=== PATIENT | female | born 1970 | race Caucasian/White ===

== ENCOUNTER 2023-01-01 15:19 | Emergency (ER) | payer OTHER, BC, SELFPAY ==
[2023-01-01 15:31] VITALS: BP 162/77; PULSE 78; RESP 17; TEMP 36.6; O2SAT 95; BMI 26.6
--- NOTE | 2023-01-01 15:36 | XR_ITS ---
WS: [id number] Left wrist, 3 views, 01/01/2023 Clinical Data: fall injury Comparison: None. Findings: There is a comminuted impacted dorsally displaced fracture of the distal left radius. There is soft t issue swelling about the fracture site. The carpal bones are intact. XR/XR wrist LT min 3V* [id number] Impression: Comminuted fracture distal left radius.
--- NOTE | 2023-01-01 15:43 | ED_ITS ---
Documented by User: MARCIA Knox 01/01/23 18:12 HPI - Extremity Problem General: Chief complaint: Extremity Injury, Upper Stated complaint: Left arm injury Time Seen by Provider: 01/01/23 15:36 History of Present Illness: Patient is a 52-year-old female comes to the ED with left wrist injury. Patient had a fall earlier today and was seen at hospital in [place]. They performed x-rays and said patient has a left wrist fracture and put him in a splint and referred them here to the ED for reevaluation. Patient already has an appointment with an orthopedic doctor at [facility] for follow-up for tomorrow. She has minimal pain. Associated symptoms: Deny chest pain, fever(s) or rash Review of Systems Const: Denies: fever(s), chills or fatigue Eyes: Denies: change in vision or eye discomfort ENMT: Denies: throat pain, odynophagia, nasal discharge or nasal congestion Card: Denies: chest pain, palpitations, edema, swelling of feet/ankles, dyspnea on exertion or orthopnea Resp: Denies: dyspnea, productive cough or non-productive cough GI: Denies: abdominal pain, nausea, vomiting, diarrhea, constipation or hematochezia : Denies: flank pain, dysuria or hematuria Musc: Reports: extremity pain (Left wrist); Denies: neck pain, back pain or extremity swelling Skin/Breast: Denies: rash or new lesions Neuro: Denies: headache(s), numbness in extremities or weakness in extremities [facility] ED PFSH: Medical History (Updated 01/01/23 @ 18:12 by MARCIA Knox) No pertinent family history Surgical History (Updated 01/01/23 @ 18:12 by MARCIA Knox) No pertinent past surgical history Physical Exam Const: COMMON NORMALS: patient oriented x3 and alert GENERAL APPEARANCE: cooperative and comfortable HENMT: COMMON NORMALS: normocephalic HEAD & SCALP: normocephalic MOUTH: Normal oral and palatal mucosa present THROAT: posterior oropharynx normal and uvula midline Neck/C-Spine: COMMON NORMALS: supple GENERAL: Yes normal visual inspection Resp: COMMON NORMALS: normal respiratory effort, No retractions, No use of accessory muscles and clear to auscultation bilaterally AUSCULTATION: clear to auscultation bilaterally Cardio: COMMON NORMALS: regular rate, regular rhythm, S1 normal heart sound present, S2 normal heart sound present, No gallops present (Cardio), No clicks present (Cardio), No murmurs present (Cardio) and Peripheral pulses 2+ throughout RATE: regular rate RHYTHM: regular rhythm HEART SOUNDS: S1 normal heart sound present and S2 normal heart sound present PERIPHERAL PULSES: Peripheral pulses 2+ throughout GI: COMMON NORMALS: Normal to inspection, nondistended, normoactive bowel sounds present, Soft to palpation, non-tender and no masses PALPATION: Yes Soft to palpation : COMMON NORMALS: Yes no CVA tenderness BLADDER/KIDNEY EXAM: Yes no CVA tenderness Back/Pelvis: COMMON NORMALS: no CVA tenderness Extremity: NARRATIVE EXTREMITY EXAM: Left wrist?no visible deformity noted. She has some swelling and tenderness over radial aspect of the wrist. Neurovascular intact distally. Neuro: COMMON NORMALS: patient oriented x3 SENSORIUM/ORIENTATION: Yes alert GAIT: Yes Normal gait present Skin: GENERAL SKIN EXAM: dry skin Course Vital Signs: Vital signs: Vital Signs Temperature 97.8 F 01/01/23 15:31 Pulse Rate 74 01/01/23 18:02 Respiratory Rate 18 01/01/23 18:02 Blood Pressure 117/85 01/01/23 18:02 Pulse Oximetry 97 01/01/23 18:02 Oxygen Delivery Me thod 01/01/23 15:31 MDM - Extremity (Nontraumatic) Medical Decision Making Patient is a 52-year-old female comes to the ED with left wrist injury. Patient had a fall just prior to arrival. Left wrist?no visible deformity noted. She has some swelling and tenderness over radial aspect of the wrist. Neurovascular intact distally. X-ray showed shows comminuted fracture of distal left radius. Patient already has an appointment with [facility] orthopedics tomorrow. Patient was put in a volar wrist splint stable for discharge home. Lab Data Radiology Impressions Wrist X-Ray 01/01/23 15:36 Impression: Comminuted fracture distal left radius. Discharge Plan Discharge Patient Disposition: Home Clinical Impression: Left wrist fracture Qualifiers: Encounter type: initial encounter Fracture type: closed Qualified Code(s): S62.102A - Fracture of unspecified carpal bone, left wrist, initial encounter for closed fracture Condition: Stable Discharge Orders: Discharge ED (Routine); Ordered 01/01/23 Ordered By: Paresh Gómez Discharge Diet: Regular Discharge Activity: Limit activity as instructed Patient Instructions: Wrist Fracture in Adults (ED) Activity Restrictions/Additional Instructions: Follow-up with medical provider as directed. Follow-up with Ortho at your next scheduled appointment. Keep splint on and dry and limit activity with left arm until cleared by Ortho. Continue taking home medications as previously prescribed. Return to the ER or your medical provider if condition worsens. Please read and understand discharge instructions. Thank you for choosing [facility] for your healthcare needs today. Please realize this is an emergency room and that we are providing you with a medical screening exam and this may not be complete and all inclusive of all the testing and or work up that you may need to determine your ailment or severity of your illness. It is very important that you follow up as instructed or that you return to the Emergency Department should you have concerns or if your condition changes or worsens in any way. Coding Level of Care Code ED Provisioning Specialist for Chg Fwd Exam Comprehensive Documented by User: Eric Quintana DO 01/02/23 07:51 HPI - Extremity Problem General: Chief complaint: Extremity Injury, Upper Stated complaint: Left arm injury Time Seen by Provider: 01/01/23 15:36 [facility] ED PFSH: Medical History (Updated 01/01/23 @ 18:12 by MARCIA Knox) No pertinent family history Surgical History (Updated 01/01/23 @ 18:12 by MARCIA Knox) No pertinent past surgical history Course Vital Signs: Vital signs: Vital Signs Temperature 97.8 F 01/01/23 15:31 Pulse Rate 74 01/01/23 18:02 Respiratory Rate 18 01/01/23 18:02 Blood Pressure 117/85 01/01/23 18:02 Pulse Oximetry 97 01/01/23 18:02 Oxygen Delivery Me thod 01/01/23 15:31 MDM - Extremity (Nontraumatic) Medical Decision Making Patient is a 52-year-old female comes to the ED with left wrist injury. Patient had a fall just prior to arrival. Left wrist?no visible deformity noted. She has some swelling and tenderness over radial aspect of the wrist. Neurovascular intact distally. X-ray showed shows comminuted fracture of distal left radius. Patient already has an appointment with [facility] orthopedics tomorrow. Patient was put in a volar wrist splint stable for discharge home. Chart reviewed and patient discussed with midlevel. Agree with assessment and plan. Medical Records I reviewed the patient's medical records. Lab Data I reviewed the patient's lab results. Radiology Impressions Wrist X-Ray 01/01/23 15:36 Impression: Comminuted fracture distal left radius. Discharge Plan Discharge Patient Disposition: Home Clinical Impression: Left wrist fracture Qualifiers: Encounter type: initial encounter Fracture type: closed Qualified Code(s): S62.102A - Fracture of unspecified carpal bone, left wrist, initial encounter for closed fracture Condition: Stable Discharge Orders: Discharge ED (Routine); Ordered 01/01/23 Ordered By: Paresh Gómez Discharge Diet: Regular Discharge Activity: Limit activity as instructed Patient Instructions: Wrist Fracture in Adults (ED) Activity Restrictions/Additional Instructions: Follow-up with medical provider as directed. Follow-up with Ortho at your next scheduled appointment. Keep splint on and dry and limit activity with left arm until cleared by Ortho. Continue taking home medications as previously prescribed. Return to the ER or your medical provider if condition worsens. Please read and understand discharge instructions. Thank you for choosing [facility] for your healthcare needs today. Please realize this is an emergency room and that we are providing you with a medical screening exam and this may not be complete and all inclusive of all the testing and or work up that you may need to determine your ailment or severity of your illness. It is very important that you follow up as instructed or that you return to the Emergency Department should you have concerns or if your condition changes or worsens in any way. Coding Level of Care Code ED Provisioning Specialist for Jose David Alva Exam Comprehensive
[2023-01-01 18:02] VITALS: BP 117/85; PULSE 74; RESP 18; O2SAT 97
== END 2023-01-01 18:04 | disposition home or self-care (01) ==
PROVIDERS: Emergency Provider Physician Assistant
DX: S62.102A Fracture of unspecified carpal bone, left wrist, initial encounter for closed fracture (principal); X58.XXXA Exposure to other specified factors, initial encounter
CPT/HCPCS: 73110; 99283

== ENCOUNTER 2023-01-02 12:55 | Observation (INO) | payer BC, SELFPAY ==
[2023-01-02] VITALS (24 sets, daily range): BP systolic 119–143; BP diastolic 78–91; PULSE 82–91; RESP 16; TEMP 36.6–36.7; O2SAT 81–100; BMI 26.6
--- NOTE | 2023-01-02 13:28 | XR_ITS ---
WS: [id number] Right wrist, 3 views, 01/02/2023 Clinical Data: Fall Comparison: None. Findings: There is a comminuted impacted dorsally displaced fracture of the distal right radius. The distal rig ht ulna is intact. The carpal bones show no fractures. There is soft tissue swelling about the wrist. XR/XR wrist RT min 3V* [id number] Impression: Distal right radial fracture.
--- NOTE | 2023-01-02 14:09 | ED_ITS ---
Documented by User: MARCIA Knox 01/02/23 15:50 HPI - Extremity Problem General: Chief complaint: Extremity Injury, Upper Stated complaint: fall, right arm/hand pain Time Seen by Provider: 01/02/23 13:48 History of Present Illness: Patient is a 52-year-old female comes to the ED with right wrist injury. Patient was seen here in the ED yesterday for left wrist fracture. She states today she went to the orthopedic clinic for follow- up on left wrist fracture. She went down the steps from the clinic to grab some lunch and while walking on the steps she slipped and fell and caught herself with her right wrist. She now has pain and swelling in right wrist. Associated symptoms: Deny chest pain, fever(s) or rash Review of Systems Const: Denies: fever(s), chills or fatigue Eyes: Denies: change in vision or eye discomfort ENMT: Denies: throat pain, odynophagia, nasal discharge or nasal congestion Card: Denies: chest pain, palpitations, edema, swelling of feet/ankles, dyspnea on exertion or orthopnea Resp: Denies: dyspnea, productive cough or non-productive cough GI: Denies: abdominal pain, nausea, vomiting, diarrhea, constipation or hematochezia : Denies: flank pain, dysuria or hematuria Musc: Reports: extremity pain (Right wrist) and limited range of motion (Right wrist); Denies: neck pain, back pain or extremity swelling Skin/Breast: Reports: new lesions (Third digit-laceration); Denies: rash Neuro: Denies: headache(s), numbness in extremities or weakness in extremities [facility] ED PFSH: Medical History No pertinent family history Surgical History No pertinent past surgical history Physical Exam Const: COMMON NORMALS: patient oriented x3 and alert GENERAL APPEARANCE: cooperative and comfortable HENMT: COMMON NORMALS: normocephalic HEAD & SCALP: normocephalic MOUTH: Normal oral and palatal mucosa present THROAT: posterior oropharynx normal and uvula midline Neck/C-Spine: COMMON NORMALS: supple GENERAL: Yes normal visual inspection Resp: COMMON NORMALS: normal respiratory effort, No retractions, No use of accessory muscles and clear to auscultation bilaterally AUSCULTATION: clear to auscultation bilaterally Cardio: COMMON NORMALS: regular rate, regular rhythm, S1 normal heart sound present, S2 normal heart sound present, No gallops present (Cardio), No clicks present (Cardio), No murmurs present (Cardio) and Peripheral pulses 2+ throughout RATE: regular rate RHYTHM: regular rhythm HEART SOUNDS: S1 normal heart sound present and S2 normal heart sound present PERIPHERAL PULSES: Peripheral pulses 2+ throughout GI: COMMON NORMALS: Normal to inspection, nondistended, normoactive bowel sounds present, Soft to palpation, non-tender and no masses PALPATION: Yes Soft to palpation : COMMON NORMALS: Yes no CVA tenderness BLADDER/KIDNEY EXAM: Yes no CVA tenderness Back/Pelvis: COMMON NORMALS: no CVA tenderness Extremity: NARRATIVE EXTREMITY EXAM: Right wrist?mild deformity noted. Swelling and tenderness over radial aspect of wrist. Limited range of motion due to pain. Neurovascular intact distally. Patient also has a 2 cm superficial linear laceration distal end of third digit. No nail or nailbed damage noted. Neuro: COMMON NORMALS: patient oriented x3 SENSORIUM/ORIENTATION: Yes alert GAIT: Yes Normal gait present Skin: GENERAL SKIN EXAM: dry skin Procedures Laceration Laceration 1: Site: hand (Third digit) Side (If applicable): right Size (cm): 2 Description: linear and clean Depth: simple, single layer Local Anesthetic: lidocaine 1% Amount of anesthesia used (mL): 5 Pre-repair: irrigated extensively (With normal saline) Skin layer closed with: nylon Size (cm): 4-0 Number of sutures: 4 Technique: simple, interrupted Course Vital Signs: Vital signs: Vital Signs Temperature 97.9 F 01/02/23 13:23 Pulse Rate 82 01/02/23 13:23 Blood Pressure 129/85 01/02/23 13:23 Pulse Oximetry 95 01/02/23 13:23 Oxygen Delivery Me thod 01/02/23 13:23 MDM - Extremity (Nontraumatic) Medical Decision Making Patient is a 52-year-old female comes to the ED with right wrist injury. Patient was seen here yesterday after having a fall and she had a left wrist fracture. She fell today on the stairs on her way up to the Ortho clinic and injured her right wrist. Vitals are stable. Right wrist shows mild deformity with some swelling tenderness over radial aspect of the wrist. She has limited range of motion due to pain. Neurovascular intact. She has a 2 cm superficial linear laceration over the distal end of third digit. Lidocaine 1% was used as local laceration irrigated extensively with normal saline. 4 sutures were placed to close laceration. I talked with Dr. Gómez the orthopedic surgeon on- call. He reviewed patient's x-rays and since she has bilateral wrist fractures that will need surgical repair he wants patient admitted by hospitalist and he will take her to the OR tomorrow morning. Dr. Quintana been was told about case and is placing the admitting orders. Lab Data Radiology Impressions Wrist X-Ray 01/02/23 13:28 Impression: Distal right radial fracture. Discharge Plan Discharge Patient Disposition: Admitted As Inpatient Clinical Impression: Fracture of right wrist Qualifiers: Encounter type: initial encounter Fracture type: closed Qualified Code(s): S62.101A - Fracture of unspecified carpal bone, right wrist, initial encounter for closed fracture Finger laceration Qualifiers: Encounter type: initial encounter Finger: middle finger Damage to nail status: without damage Foreign body presence: without foreign body Laterality: right Qualified Code(s): S61.212A - Laceration without foreign body of right middle finger without damage to nail, initial encounter Left wrist fracture Qualifiers: Encounter type: subsequent encounter Fracture type: closed Fracture healing: with routine healing Qualified Code(s): S62.102D - Fracture of unspecified carpal bone, left wrist, subsequent encounter for fracture with routine healing Condition: Stable Discharge Diet: Regular Discharge Activity: Increase activity as tolerated Coding Level of Care Code ED Dough Mixer Helper for g Fwd Exam Comprehensive Documented by User: Eric Quintana DO 01/02/23 16:27 HPI - Extremity Problem General: Chief complaint: Extremity Injury, Upper Stated complaint: fall, right arm/hand pain Time Seen by Provider: 01/02/23 13:48 PFSH ED PFSH: Medical History No pertinent family history Surgical History No pertinent past surgical history Course Vital Signs: Vital signs: Vital Signs Temperature 97.9 F 01/02/23 13:23 Pulse Rate 82 01/02/23 13:23 Blood Pressure 129/85 01/02/23 13:23 Pulse Oximetry 95 01/02/23 13:23 Oxygen Delivery Me thod 01/02/23 13:23 MDM - Extremity (Nontraumatic) Medical Decision Making Patient is a 52-year-old female comes to the ED with right wrist injury. Patient was seen here yesterday after having a fall and she had a left wrist fracture. She fell today on the stairs on her way up to the Ortho clinic and injured her right wrist. Vitals are stable. Right wrist shows mild deformity with some swelling tenderness over radial aspect of the wrist. She has limited range of motion due to pain. Neurovascular intact. She has a 2 cm superficial linear laceration over the distal end of third digit. Lidocaine 1% was used as local laceration irrigated extensively with normal saline. 4 sutures were placed to close laceration. I talked with Dr. Gómez the orthopedic surgeon on- call. He reviewed patient's x-rays and since she has bilateral wrist fractures that will need surgical repair he wants patient admitted by hospitalist and he will take her to the OR tomorrow morning. Dr. Mariano glez was told about case and is placing the admitting orders. Chart reviewed and patient discussed with midlevel. Agree with assessment and plan. Orders written for admission Medical Records I reviewed the patient's medical records. Lab Data I reviewed the patient's lab results. Radiology Impressions Wrist X-Ray 01/02/23 13:28 Impression: Distal right radial fracture. Discharge Plan Discharge Patient Disposition: Admitted As Inpatient Clinical Impression: Fracture of right wrist Qualifiers: Encounter type: initial encounter Fracture type: closed Qualified Code(s): S62.101A - Fracture of unspecified carpal bone, right wrist, initial encounter for closed fracture Finger laceration Qualifiers: Encounter type: initial encounter Finger: middle finger Damage to nail status: without damage Foreign body presence: without foreign body Laterality: right Qualified Code(s): S61.212A - Laceration without foreign body of right middle finger without damage to nail, initial encounter Left wrist fracture Qualifiers: Encounter type: subsequent encounter Fracture type: closed Fracture healing: with routine healing Qualified Code(s): S62.102D - Fracture of unspecified carpal bone, left wrist, subsequent encounter for fracture with routine healing Condition: Stable Discharge Diet: Regular Discharge Activity: Increase activity as tolerated Coding Level of Care Code ED Dough Mixer Helper for Jose David Alva Exam Comprehensive
[2023-01-02] MEDS: neomycin-poly-bacitracin oint 28 gm 1 APPLIC TOPICAL (15:19)
[2023-01-02] MEDS: lidocaine 1% INJ 10 mL (per mL) 5 ML INJECTION (15:21)
--- NOTE | 2023-01-02 16:43 | PC.NURSE ---
report given to rubia rn
--- NOTE | 2023-01-02 17:05 | PM.HP ---
Providers/Chief Complaint Admitting Physician: Wil Burnett MD Chief Complaint: fall, right arm/hand pain History of Present Illness Shaista Gracía is a 52 year old female with no significant past medical history, came today to see orthopedic surgeon as outpatient, as she had experienced mechanical fall yesterday while she was walking over the snow, and slipped resulting in fracture of left wrist fracture, she was here in ER yesterday and was sent home to see orthopedic as outpatient today, today at the orthopedic clinic while waiting for the appointment she went down the steps from the clinic to grab some lunch and while walking on the steps she slipped and fell, unfortunately resulting in fracture of right wrist. She also has superficial linear laceration over distal third digit, has received 4 sutures to close the laceration. During both these unfortunate events see has not experienced any chest pain lightheadedness. X-ray wrist have shown: Distal right radial fracture,Comminuted fracture distal left radius. Review of Systems General: Reports: 10 or more systems reviewed and unremarkable except in HPI and below Const: Denies: fever(s), chills, body aches, change in appetite or diaphoresis Card: Denies: palpitations, edema, swelling of feet/ankles, dyspnea on exertion, orthopnea or leg pain with exertion Resp: Denies: dyspnea, productive cough, wheezing or pain on inspiration GI: Denies: abdominal pain, nausea, vomiting, diarrhea or constipation : Denies: flank pain Musc: Reports: extremity pain; Denies: back pain or extremity swelling Neuro: Denies: headache(s), difficulty walking or confusion Medications/Allergies Home Medications Medication Instructions Recorded Confirmed Last Taken Type acetaminophen 325 mg tablet 325 mg PO QID PRN Pain 01/02/23 01/02/23 01/02/23 History (Tylenol) Allergies Allergy/AdvReac Type Severity Reaction Status Date / Time No Known Allergies Allergy Verified 01/02/23 15:31 PFSH Acute PFSH: Medical History No pertinent family history Surgical History No pertinent past surgical history Vitals/I&O/Wt Last Vital Signs Temp 97.9 F 01/02/23 13:23 Pulse 82 01/02/23 13:23 BP 131/89 01/02/23 16:40 Pulse Ox 82 L 01/02/23 16:40 O2 Del Method 01/02/23 13:23 Weight last 48 hrs Weight 70.307 kg Physical Exam Const: COMMON NORMALS: patient oriented x3 HENMT: COMMON NORMALS: normocephalic and atraumatic HEAD & SCALP: normocephalic and atraumatic Resp: COMMON NORMALS: clear to auscultation bilaterally AUSCULTATION: clear to auscultation bilaterally Cardio: COMMON NORMALS: regular rate, regular rhythm, S1 normal heart sound present, S2 normal heart sound present, No gallops present (Cardio), No murmurs present (Cardio), No rub (Cardio) and Peripheral pulses 2+ throughout RATE: regular rate RHYTHM: regular rhythm HEART SOUNDS: S1 normal heart sound present and S2 normal heart sound present PERIPHERAL PULSES: Peripheral pulses 2+ throughout GI: COMMON NORMALS: Soft to palpation, non-tender and No hepatosplenomegaly present AUSCULTATION: Yes normoactive bowel sounds PALPATION: Yes Soft to palpation and Yes No hepatosplenomegaly present RECTAL EXAM: deferred Extremity: COMMON NORMALS: no clubbing, cyanosis or edema and no pedal edema NARRATIVE EXTREMITY EXAM: Bilateral wrist Neuro: COMMON NORMALS: patient oriented x3 A&P Assessment and plan (1) Fracture of right wrist: Qualifiers: Encounter type: initial encounter Fracture type: closed Qualified Code(s): S62.101A - Fracture of unspecified carpal bone, right wrist, initial encounter for closed fracture (2) Finger laceration: Qualifiers: Damage to nail status: without damage Encounter type: initial encounter Finger: middle finger Foreign body presence: without foreign body Laterality: right Qualified Code(s): S61.212A - Laceration without foreign body of right middle finger without damage to nail, initial encounter (3) Left wrist fracture: Qualifiers: Encounter type: subsequent encounter Fracture healing: with routine healing Fracture type: closed Qualified Code(s): S62.102D - Fracture of unspecified carpal bone, left wrist, subsequent encounter for fracture with routine healing Plan Assessment Distal right radial fracture Comminuted fracture distal left radius Plan: Pain control Bowel regimen N.p.o. after midnight Orthopedic on board Attestations Medical Necessity Statement*: In hospital for management of bilateral wrist fracture. Anticipated length of stay greater than 2 midnights. Time Spent in Patient Care: Greater than 35 minutes (>than 50% of time spent in counselling and/or direct pt care on unit). Coding Level of Care Code Acute Code for Chg Fwd Diagnoses Fracture of right wrist S62.101A Encounter type: initial encounter Fracture type: closed Finger laceration S61.212A Damage to nail status: without damage Encounter type: initial encounter Finger: middle finger Foreign body presence: without foreign body Laterality: right Left wrist fracture S62.102D Encounter type: subsequent encounter Fracture healing: with routine healing Fracture type: closed
--- NOTE | 2023-01-02 17:21 | P.CONIM_ITS ---
Providers/Reason For Consult Consulting Physician/Specialty*: Orthopedic surgery/Geovani Gómez DO Reason for Consult*: Bilateral distal radius fractures Requesting Physician: Paresh Gómez PA-C Attending Physician: Wil Burnett MD History of Present Illness History of Present Illness Shaista García is a 52 year old female who sustained a fall on the ice and was initially seen in the emergency department on 01/01/2023 for evaluation of left wrist pain and deformity. She was found to have a left distal radius fracture that is dorsally angulated and comminuted she was subsequently splinted and referred to orthopedics for follow-up. She was set to see myself in follow-up today in the office. While waiting for her appointment she went down the stairs subsequently sustained an additional fall subsequently landing on her right wrist and sustaining a comminuted dorsally angulated and displaced right distal radius fracture. This was during the lunch hour while I was in a surgery patient was subsequently taken to the emergency department and evaluated she now has bilateral distal radius fractures that are dorsally angulated outside of acceptable parameters. At this point time discussed with the emergency department team and will have hospitalist admit patient with plan for surgical intervention tomorrow for bilateral distal radius ORIF. We will have her medically optimized. She is currently splinted. Pain controlled. Continue with elevation. N.p.o. at midnight. Patient did have a small superficial laceration to the middle finger just distal to the DIP flexion crease. She is able to flex at the DIP joint consistent with no flexor tendon injury. This was sutured closed in the emergency department. Patient denies any fevers chills chest pain shortness of breath nausea or vomiting. She denies any loss of consciousness during each of these falls. Review of Systems General: Reports: 10 or more systems reviewed and unremarkable except in HPI and below Medications/Allergies Home Medications Medication Instructions Recorded Confirmed Last Taken Type acetaminophen 325 mg tablet 325 mg PO QID PRN Pain 01/02/23 01/02/23 01/02/23 History (Tylenol) Allergies Allergy/AdvReac Type Severity Reaction Status Date / Time No Known Allergies Allergy Verified 01/02/23 15:31 PFSH Acute PFSH: Medical History (Updated 01/02/23 @ 23:39 by Geovani Gómez DO) Distal radius fracture, left Distal radius fracture, right No pertinent family history Surgical History No pertinent past surgical history Vitals/I&O/Wt Last Vital Signs Temp 97.9 F 01/02/23 13:23 Pulse 82 01/02/23 13:23 BP 131/89 01/02/23 16:40 Pulse Ox 82 L 01/02/23 16:40 O2 Del Method 01/02/23 16:56 Weight last 48 hrs Weight 155 lb Physical Exam Narrative: Examination demonstrates no tenderness to palpation of the shoulder elbows bilaterally. She is currently in volar splints to the bilateral wrists. Mild swelling noted of the fingers. She is able to wiggle fingers and endorses sensation intact to light touch to the radial/ulnar/median nerve distribution of the hand. No range of motion assessed and unable to assess distal pulses secondary to patient's splint limiting examinations. She has brisk capillary refill less than 2 seconds. The right middle finger does have a repaired laceration just distal to the DIP crease on the palmar side and is able to flex at the DIP joint consistent with no flexor tendon injury. Secondary survey examination is normal with no tenderness to palpation of the hips bilaterally negative logroll tolerates hip range of motion knee range of motion and foot and ankle range of motion. Data Xray Ortho: My impression: X-rays of the bilateral wrist reviewed and personally interpreted by myself demonstrating a comminuted and dorsally angulated left distal radius fracture this appears to be extra-articular in nature with significant dorsal angulation. X-rays of the right wrist reviewed and demonstrates a comparable fracture with dorsal angulation and comminution that appears to be extra-articular in nature. No ulnar styloid fractures are noted. A&P Assessment and plan (1) Distal radius fracture, right: (2) Distal radius fracture, left: (3) Finger laceration: Qualifiers: Damage to nail status: without damage Encounter type: initial encounter Finger: middle finger Foreign body presence: without foreign body Laterality: right Qualified Code(s): S61.212A - Laceration without foreign body of right middle finger without damage to nail, initial encounter Plan Bilateral volar splints Elevation and ice as needed Nonweightbearing bilateral upper extremities PT/OT Internal medicine on board his primary Pain control N.p.o. at midnight Hold a.m. anticoagulation Plan for OR tomorrow for bilateral distal radius open reduction and internal fixation Patient unfortunately sustained an injury back on 01/01/2020 through the fall and a nice and sustained a left distal radius fracture she was set to follow-up with me in the office today however and going down the stairs waiting for appointment to go get lunch she sustained an additional fall and sustained a right distal radius fracture. These both appear to be extra-articular but have significant dorsal angulation and comminution and given the bilateral nature of this would recommend surgical intervention of bilateral distal radius ORIF's. She is young and active with her hands at this point time I feel this would benefit patient from earlier mobilization now she does understand that we will still keep her nonweightbearing for 6 weeks, however after incision heals she can be in a removable wrist brace and will be able to help with hygiene purposes. Patient understands the risk benefits complication alternatives surgical and nonsurgical treatment options. She understands risk of surgery include but not limited to make a better make it worse, injury to arteries nerves or tendons, decreased wrist range of motion, infection, wound dehiscence, persistent pain, failure of hardware, nonunion, malunion. Understand these risks he agrees to proceed with surgical intervention. All questions been answered at this time. Should be medically optimized by the internal medicine team and plan for surgery tomorrow morning. N.p.o. at midnight. Coding Level of Care Code Acute Code for [facility] Diagnoses Distal radius fracture, right S52.501A Distal radius fracture, left S52.502A Finger laceration S61.212A Damage to nail status: without damage Encounter type: initial encounter Finger: middle finger Foreign body presence: without foreign body Laterality: right Time Spent (min) 45
[2023-01-02] MEDS: acetaminophen 325 mg Tablet 650 MG PO (21:17)
[2023-01-03] VITALS (15 sets, daily range): BP systolic 102–148; BP diastolic 71–89; PULSE 64–98; RESP 14–18; TEMP 36.1–37.2; O2SAT 92–97
--- NOTE | 2023-01-03 | XR_ITS ---
WS: [id number] XR wrist RT 2V [id number] REASON FOR EXAM: KAIDEN PICS FINDINGS: Plate and screw fixation of extra-articular transverse fracture of the distal radial metaphysis. Fracture fragments and surgical appliances are in proper position and alignment. Foreshortening of th e radius fully corrected. XR/XR wrist RT 2V [id number] IMPRESSION: Open reduction and fixation of distal radial fracture with no abnormality.
[2023-01-03 02:04] LABS: Basophils % 0.3 %; Eosinophils # 0.1 10^3/uL (0.0-0.8); Eosinophils % 0.6 %; Hematocrit 35.5 % (37.0-47.0); Hemoglobin 11.5 g/dL (11.5-15.3); Lymphocytes # 2.6 10^3/uL (0.8-4.8); Lymphocytes % 23.8 %; Mean Corpuscular HGB Conc 32.4 g/dL (30.0-36.0); Mean Corpuscular Volume 92.7 fl (81-99); Mean Platelet Volume 9.8 fL (7.4-10.4); Monocytes # 1.1 10^3/uL (0.2-0.9); Monocytes % 10.6 %; Neutrophils # 6.96 10^3/uL (1.8-7.7); Neutrophils % 64.5 %; Nucleated Red Blood Cells % 0 %; Platelet Count 295 10^3/cmm (130-400); Red Blood Count 3.83 10^6/uL (4.1-5.3); Red Cell Distribution Width 11.7 % (12.1-15.1); White Blood Count 10.8 10^3/uL (4.0-10.0)
[2023-01-03 02:29] LABS: Anion Gap 14.8 (5-19); Blood Urea Nitrogen 12 mg/dL (6-20); Carbon Dioxide 28 mmol/L (22-29); Chloride 102 mmol/L (98-107); Glomerular Filtration Rate 87.9 mL/min (90-130); Glucose 124 mg/dL (65-115); Osmolality Calculated 293 mOsm/kg (285-295); Potassium 3.8 mmol/L (3.5-5.1); Sodium 141 mmol/L (136-145)
[2023-01-03] MEDS: sodium chloride 0.9% 1,000 ML 30 ML IV (07:15)
--- NOTE | 2023-01-03 07:18 | W.PM.OPSUD ---
Surgery/Procedure H&P Update DATE OF PROCEDURE: January 03, 2023 DATE H&P PERFORMED: 01/02/23 CHANGES TO PREVIOUS DOCUMENTATION: None PREOP DIAGNOSIS: Bilateral distal radius fractures PRIMARY INDICATION FOR PROCEDURE: Bilateral distal radius fractures extra-articular dorsally angulated and comminuted. PLANNED PROCEDURE: Operation Date: 01/03/23 08:20 Proposed Procedures p Bilateral distal ORIF Wrist ORIF Radius(Bilateral) - Geovani Gómez DO
[2023-01-03] MEDS: ceFAZolin 2,000 MG in sodium chloride 0.9% (plus) 50 ML 100 MG IV (08:35)
--- NOTE | 2023-01-03 08:40 | ANES.PREANE2 ---
Pre-Anesthetic Assessment Height/Weight: Height 1.63 m Weight 70.307 kg Temp Pulse Resp BP Pulse Ox O2 Del Method 98.2 F 92 17 102/79 95 01/03/23 07:14 01/03/23 07:14 01/03/23 07:14 01/03/23 07:14 01/03/23 07:14 01/03/23 07:14 Preop Diagnosis: Bilateral distal radius fractures Operation Date: 01/03/23 08:20 Proposed Procedures p Bilateral distal ORIF Wrist ORIF Radius(Bilateral) - Geovani Gómez DO Familial anesthetic complications: none Was Beta Jordon taken within 24 hours: N/A Was Clonidine taken within 24 hours: N/A Last intake: Intake Last Solid Date 01/02/23 Last Solid Time 19:00 Social No alcohol and No tobacco Exam alert, oriented x 3, clear to auscultation bilaterally and regular rate & rhythm Airway Submandibular: within normal limits Cervical ROM: within normal limits Mallampati: Class II Dentition: chipped Metabolic obese Musc/skel Bilateral wrist frx Anesthetic Plan ASA status: 2 Anesthesia: General Medications/Allergies Home Medications Medication Instructions Recorded Confirmed Last Taken Type acetaminophen 325 mg tablet 325 mg PO QID PRN Pain 01/02/23 01/02/23 01/02/23 History (Tylenol) Allergies Allergy/AdvReac Type Severity Reaction Status Date / Time No Known Allergies Allergy Verified 01/02/23 15:31 Current Medications Generic Name Dose Route Start Last Admin Trade Name Freq PRN Reason Stop Dose Admin Acetaminophen 650 mg 01/02/23 16:56 01/02/23 21:17 Acetaminophen 325 Mg Tablet PO 650 mg Q6H PRN Administration Mild/Mod Pain Or Temp >/= 101 Sodium Chloride 1,000 mls @ 30 mls/hr 01/03/23 08:15 01/03/23 07:15 Sodium Chloride 0.9% IV 01/04/23 08:14 30 mls/hr .Q24H AZEB Administration PFSH Anesthesia Medical History (Updated 01/02/23 @ 23:39 by Geovani Gómez DO) Distal radius fracture, left Distal radius fracture, right No pertinent family history Surgical History No pertinent past surgical history Data Anesthesia 01/03/23 01:36 01/03/23 01:36 Short CBC 01/03/23 Range/Units 01:36 WBC 10.8 H (4.0-10.0) 10^3/uL Hgb 11.5 (11.5-15.3) g/dL Hct 35.5 L (37.0-47.0) % MCV 92.7 (81-99) fl Plt Count 295 (130-400) 10^3/cmm Neut % (Auto) 64.5 % Neut # (Auto) 6.96 (1.8-7.7) 10^3/uL BMP 01/03/23 01:36 Sodium 141 Potassium 3.8 Chloride 102 Carbon Dioxide 28 BUN 12 Creatinine 0.7 Glucose 124 H Calcium 9.0 Cardiac Studies: No Data to Display
--- NOTE | 2023-01-03 10:25 | P.OP_ITS ---
Brief Operative Note Date of procedure: 01/03/23 Pre-op diagnosis: Bilateral distal radius fractures Post-op diagnosis: same Procedure Done: Open reduction internal fixation left distal radius fracture, extra-articular Open reduction internal fixation right distal radius fracture, extra-articular Surgeon: Geovani Gómez Estimated blood loss (mL): 10 Complications: None Post-op Plan: Patient taken PACU in stable condition recovering well. Splints on bilaterally. Will be nonweightbearing to the bilateral upper extremities. Will return to the floor. Postoperative pain control and elevation. Will be stable for discharge from orthopedic standpoint once cleared by medicine. Plan to follow- up with me in the office in 2 weeks. Keep splint on in place until then. Keep clean dry and intact. Condition: stable Disposition: floor Coding Level of Care Code Acute Code for [facility]
--- NOTE | 2023-01-03 10:26 | P.PCN_ITS ---
PACU note Narrative: Patient seen and evaluated in PACU. Patient recovering well. Pain controlled. Splint on in place clean dry and intact bilaterally. Patient be nonweightbearing bilateral hands. She of the wiggle fingers and endorses sensation intact to light touch to radial/ulnar/median nerve distribution. Fing ertips warm well perfused. This point time will return to the floor. Once patient is tolerating a diet and pain controlled she is stable for discharge from orthopedic standpoint later today. All questions answered at this time. Exam: awake Disposition: back to floor
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
[2023-01-03] MEDS: HYDROmorphone 1 mg/mL INJ 1 mL 0.5 MG IVP (10:44)
--- NOTE | 2023-01-03 10:44 | P.PCN_ITS ---
PACU note Narrative: VSS, Good respiratory effort, report to JOURNEYMAN MECHANIC Exam: awake
--- NOTE | 2023-01-03 10:44 | PM.PACU ---
PACU note Narrative: VSS, Good respiratory effort, report to NET DEVELOPER PROGRAMMER Exam: awake
[2023-01-03] MEDS: meperidine 50 mg/mL INJ 12.5 MG IVP (10:48)
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
--- NOTE | 2023-01-03 11:36 | ANE.PACU2 ---
Inpatient post-anesthesia follow up: Airway intact: Yes Vital signs: Temperature 97.2 F Pulse Rate 80 Respiratory Rate 17 Blood Pressure 134/72 Pulse Oximetry 93 Oxygen Delivery Me thod Room Air Oxygen Flow Rate 6 Fraction of Inspir ed Oxygen Hydration adequate: Yes Nausea and vomiting: No Pain level: 3 Mental status: Baseline
--- NOTE | 2023-01-05 09:43 | DCPLANNER ---
Addendum entered by Brianda Gamboa 02/06/23 08:58: Patient had a follow up appointment scheduled with ortho - patient did attend appointment. Original Note: corporate operations compliance manager had message to schedule a follow up appointment for patient with ortho. corporate operations compliance manager sent patients information to the front office staff at ortho. Patients information will be printed and reviewed. Clinic will call patient with appointment information.
== END 2023-01-03 14:05 | disposition home or self-care (01) ==
LOC: ER 16:18 → MEDSURG 16:47
PROVIDERS: Student in an Organized Health Care Education/Training Program; Admitting Provider Internal Medicine; Emergency Provider Family Medicine; Visit Provider Internal Medicine
PROC: (CPT 25607; principal; 2023-01-03 08:00)
DX: S52.552A Other extraarticular fracture of lower end of left radius, initial encounter for closed fracture (principal); S52.551A Other extraarticular fracture of lower end of right radius, initial encounter for closed fracture; S61.212A Laceration without foreign body of right middle finger without damage to nail, initial encounter; W00.0XXA Fall on same level due to ice and snow, initial encounter; E66.9 Obesity, unspecified; Z68.26 Body mass index [BMI] 26.0-26.9, adult
CPT/HCPCS: 25607 ×2; 12001; 29125; 36415; 73100; 73110; 76000; 80048; 85025; 96365; 96375; 99285; C1713; G0378; J0690; J1100; J1170; J2175; J2370; J2405; J2704; J3010; J7030

== ENCOUNTER → 2023-01-21 09:14 | Outpatient (BNVA) | payer OTHER, BC, SELFPAY | PROVIDERS: Visit Provider Student in an Organized Health Care Education/Training Program | DX: X58.XXXA Exposure to other specified factors, initial encounter (principal); S52.502A Unspecified fracture of the lower end of left radius, initial encounter for closed fracture; S52.501A Unspecified fracture of the lower end of right radius, initial encounter for closed fracture | CPT/HCPCS: 73110 ==

== ENCOUNTER 2023-01-21 14:47 | Outpatient (CLI) | payer OTHER, BC, SELFPAY | END 2023-01-21 14:48 | disposition home or self-care (01) | LOC: SPT 14:48 | PROVIDERS: Visit Provider Student in an Organized Health Care Education/Training Program | DX: Z46.89 Encounter for fitting and adjustment of other specified devices (principal); S52.592D Other fractures of lower end of left radius, subsequent encounter for closed fracture with routine healing; S52.591D Other fractures of lower end of right radius, subsequent encounter for closed fracture with routine healing; X58.XXXD Exposure to other specified factors, subsequent encounter | CPT/HCPCS: 97760; L3908 ==

== ENCOUNTER 2023-02-03 06:00 | Outpatient (RCR) | payer OTHER, BC, SELFPAY | END 2023-02-27 23:59 | disposition home or self-care (01) | LOC: WPT 06:00 | PROVIDERS: Visit Provider Student in an Organized Health Care Education/Training Program | DX: Z47.89 Encounter for other orthopedic aftercare (principal) | CPT/HCPCS: 97110; 97161; 97530 ==

== ENCOUNTER 2023-02-03 06:00 | Outpatient (RCR) | payer BC, SELFPAY | END 2023-02-27 23:59 | disposition home or self-care (01) | LOC: WPT 06:00 | PROVIDERS: Visit Provider Student in an Organized Health Care Education/Training Program | DX: Z47.89 Encounter for other orthopedic aftercare (principal) | CPT/HCPCS: 97110; 97161; 97530 ==

== ENCOUNTER → 2023-02-16 14:44 | Outpatient (BNVA) | payer OTHER, BC, SELFPAY | PROVIDERS: Visit Provider Student in an Organized Health Care Education/Training Program | DX: S52.502D Unspecified fracture of the lower end of left radius, subsequent encounter for closed fracture with routine healing (principal); S52.501D Unspecified fracture of the lower end of right radius, subsequent encounter for closed fracture with routine healing; X58.XXXD Exposure to other specified factors, subsequent encounter | CPT/HCPCS: 73110 ==

== ENCOUNTER 2023-02-28 01:00 | Outpatient (RCR) | payer BC, SELFPAY | END 2023-03-29 23:59 | disposition home or self-care (01) | LOC: WPT 01:00 | PROVIDERS: Visit Provider Student in an Organized Health Care Education/Training Program | DX: Z47.89 Encounter for other orthopedic aftercare (principal); Z98.890 Other specified postprocedural states; S52.501D Unspecified fracture of the lower end of right radius, subsequent encounter for closed fracture with routine healing; X58.XXXD Exposure to other specified factors, subsequent encounter | CPT/HCPCS: 97110; 97112; 97140 ==

== ENCOUNTER 2023-02-28 06:00 | Outpatient (RCR) | payer OTHER, BC, SELFPAY | END 2023-03-29 23:59 | disposition home or self-care (01) | LOC: WPT 06:00 | PROVIDERS: Visit Provider Student in an Organized Health Care Education/Training Program | DX: Z47.89 Encounter for other orthopedic aftercare (principal) | CPT/HCPCS: 97110; 97140; 97530 ==

== ENCOUNTER 2023-03-30 06:00 | Outpatient (RCR) | payer BC, SELFPAY | END 2023-04-29 23:59 | disposition home or self-care (01) | LOC: WPT 06:00 | PROVIDERS: Visit Provider Student in an Organized Health Care Education/Training Program | DX: Z47.89 Encounter for other orthopedic aftercare (principal) | CPT/HCPCS: 97110; 97140 ==

== ENCOUNTER 2023-04-01 15:33 | Outpatient (RCR) | payer BC, SELFPAY | END 2023-04-29 23:59 | disposition home or self-care (01) | LOC: WPT 15:33 | PROVIDERS: Visit Provider Student in an Organized Health Care Education/Training Program | DX: Z47.89 Encounter for other orthopedic aftercare (principal) | CPT/HCPCS: 97110; 97140 ==

== ENCOUNTER → 2023-04-13 14:17 | Outpatient (BNVA) | payer BC, SELFPAY | PROVIDERS: Visit Provider Student in an Organized Health Care Education/Training Program | DX: S52.501A Unspecified fracture of the lower end of right radius, initial encounter for closed fracture (principal); S52.502A Unspecified fracture of the lower end of left radius, initial encounter for closed fracture; X58.XXXA Exposure to other specified factors, initial encounter | CPT/HCPCS: 73110 ==

== ENCOUNTER 2023-04-30 06:00 | Outpatient (RCR) | payer BC, SELFPAY | END 2023-05-29 23:59 | disposition home or self-care (01) | LOC: WPT 06:00 | PROVIDERS: Visit Provider Student in an Organized Health Care Education/Training Program | DX: Z47.89 Encounter for other orthopedic aftercare (principal) | CPT/HCPCS: 97110; 97530 ==

== ENCOUNTER → 2025-09-11 09:50 | Outpatient (BNVA) | payer BC, SELFPAY | PROVIDERS: PCP Nurse Practitioner Family; Visit Provider Nurse Practitioner Family | DX: Z00.00 Encounter for general adult medical examination without abnormal findings (principal); Z79.899 Other long term (current) drug therapy; Z13.6 Encounter for screening for cardiovascular disorders | CPT/HCPCS: 80053; 80061; 81003; 82306; 83036; 84439; 84443; 85025 ==